=== PATIENT | female | born 1970 | race Caucasian/White ===

== ENCOUNTER 2023-01-27 15:39 | Inpatient (IN) ==
--- NOTE | 2023-01-27 16:24 | XRay Report ---
XR chest 1V portable HISTORY: 52 years-old Female SOB acute shortness of breath COMPARISON: 02/17/2015 TECHNIQUE: AP view of the chest FINDINGS: Cardiac silhouette is enlarged. Mild interstitial coarsening with subtle bibasilar densities. No pneu mothorax or pleural effusion. Degenerative changes of the shoulders and spine. IMPRESSION: 1. Cardiomegaly with pulmonary vascular congestion. 2. Ill-defined mild bibasilar opacities which may be secondary to summation density versus airspace d isease. Findings could be correlated with PA and lateral views of the chest. ACT 112: Negative or not required by law. The above report was generated using voice recognition software. It may contain grammatical, syntax o r spelling errors. Electronically signed by: Jose J Lemos M.D. 01/27/2023 4:23 PM
[2023-01-27 16:39] LABS: Base Excess VBG 3.3 mEq/L; HCO3 VBG 29 mmol/L; Oxygen Saturation VBG 66.6 %; PCO2 VBG 48 mmHg (38-50); PO2 VBG 39 mmHg; pH VBG 7.39 (7.36-7.41)
[2023-01-27 16:49] LABS: Basophils # (auto) 0.02 K/uL (0-0.2); Basophils % (auto) 0.3 %; Eosinophils # (auto) 0.02 K/uL (0-0.50); Eosinophils % (auto) 0.3 %; Hematocrit (blood only) 37.6 % (37.0-47.0); Hemoglobin 12.2 g/dl (12.0-16.0); Immature Granulocytes # (auto) 0.04 K/uL (0.01-0.20); Immature Granulocytes % (auto) 0.5 %; Lymphocytes # (auto) 0.82 K/uL (1.2-3.4); Lymphocytes % (auto) 10.4 %; Mean Corpuscular Hemoglobin 29.2 pg (25.0-34.0); Mean Corpuscular Hgb Conc 32.4 g/dL (32.0-36.0); Mean Platelet Volume 8.9 fL (9.4-12.4); Monocytes # (auto) 0.62 K/uL (0.11-0.59); Monocytes % (auto) 7.9 %; Neutrophils # (auto) 6.33 K/uL (1.40-6.50); Neutrophils % (auto) 80.6 %; Platelet Count 206 K/uL (130-400); RDW Coefficient of Variation 14.5 % (11.5-14.5); RDW Standard Deviation 47.5 fL (36.4-46.3); Red Blood Count 4.18 M/uL (4.20-5.40); White Blood Count 7.85 K/ul (4.8-10.8)
[2023-01-27 17:00] LABS: Adenovirus PCR Not Detected (NotDetected); Bordetella parapertussis PCR Not Detected (NotDetected); Bordetella pertussis PCR Not Detected (NotDetected); Chlamydia pneumoniae PCR Not Detected (NotDetected); Coronavirus 229E PCR Not Detected (NotDetected); Coronavirus CoV-2 (COVID19)PCR Not Detected (NotDetected); Coronavirus HKU1 PCR Not Detected (NotDetected); Coronavirus NL63 PCR Not Detected (NotDetected); Coronavirus OC43PCR Not Detected (NotDetected); Human Metapneumovirus PCR Not Detected (NotDetected); Influenza A PCR Not Detected (NotDetected); Influenza B PCR Not Detected (NotDetected); Mycoplasma pneumoniae PCR Not Detected (NotDetected); Parainfluenza Virus 1 PCR Not Detected (NotDetected); Parainfluenza Virus 2 PCR Not Detected (NotDetected); Parainfluenza Virus 3 PCR Not Detected (NotDetected); Parainfluenza Virus 4 PCR Not Detected (NotDetected); Respiratory Syncytial VirusPCR Not Detected (NotDetected); Rhinovirus/Enterovirus PCR Not Detected (NotDetected)
[2023-01-27 17:01] LABS: Calcium 8.7 mg/dl (8.6-10.3); Creatinine Clr Calc Pharmacy 91.9 ml/min; Est GFR (African American) 85.2 ml/min; Est GFR (Non-African American) 73.5 ml/min; Potassium 3.9 mmol/L (3.5-5.1)
[2023-01-27 17:07] LABS: Troponin I High Sensitivity 12.9 pg/ml (0-14)
[2023-01-27 17:21] LABS: D Dimer 450 ug/L FEU (0-500); Partial Thromboplastin Time 27.1 Seconds (21.0-31.0); Prothrombin Time 10.8 Seconds (9.0-12.0)
[2023-01-27] MEDS ORDERED: FUROSEMIDE 40 MG/4 ML VIAL IV ONE (17:28)
--- NOTE | 2023-01-27 17:43 | History & Physical Report ---
Date of Service January 27, 2023 Assessment & Plan (1) Acute respiratory failure with hypoxia: Plan: Acute hypoxic respiratory failure suspect 2/2 community-acquired pneumonia, no baseline oxygen requirement At increased risk due to immunosuppression from RA treatments 2 weeks of fever, chills, minimally productive cough Viral panel negative CXR with bibasilar infiltrates and pulmonary vascular congestion. Patient has no history of heart failure and no pitting edema. High-sensitivity troponin is normal, BMP is normal. CTchest ordered to further characterize, empiric treatment for CAP on admission with Rocephin/vancomycin, MRSA nares pending if negative discontinue vancomycin Blood cultures pending Sputum culture pending Patient is hemodynamically stable and does not show evidence of sepsis at time of admission Procalcitonin ordered at time of admission - echo pending (2) CAP (community acquired pneumonia): Plan: As noted (3) Rheumatoid arthritis: Plan: Plaquenil and methotrexate held in the setting of suspected infection (4) Diabetes: Plan: Hold home antiglycemic's Patient does not know home A1c A1c pending Weight-based basal bolus SSI, CF 35, ratio 15, basal 11 twice daily Goal BSG [id number] (5) Hyperlipidemia: Plan: Continue statin (6) Chest pain: Plan: Single episode of chest heaviness while walking and very short of breath Patient denies past history of cardiac disease, no GA, no heart failure Initial troponin is negative, EKG without acute ischemic change Repeat troponin x1 pending We will follow on medical telemetry, downgrade 01/28 if doing well and remains chest pain-free If chest pain develops repeat EKG, obtain echo, add sublingual nitro, and continue to follow troponin (7) Hypothyroid: Plan: - continue synthroid Plan DVT prophylaxis: Lovenox Disposition: Medical telemetry for chest pain eval, downgrade if doing well CODE STATUS: DNR/DNI, discussed with patient at bedside with her must not present who is in agreement. Patient does not want any limitation of treatment while alive and would consider a breathing tube for support for declining respiratory status, but if she were to become so ill that her heart/breathing were to stop entirely she would not want resuscitative efforts including CPR/intubation taken at that time Diet: Heart healthy, type II DM History of Present Illness Primary Care Provider: Aquilino Hearn is a 52-year-old female the past medical history of rheumatoid arthritis on methotrexate on Sundays 20 mg, Plaquenil, hypothyroidism, hyperlipidemia, depression, type II DM, hypertension who presents with 2 weeks of weakness, fever, night sweats, minimally productive cough which is not improving. She has no history of heart failure, had 1 episode of some slight chest heaviness while walking with her shortness of breath otherwise denies angina/chest pain saw her PCP who recommended she be seen in ER lightheaded, cough, fever, and some night sweats x2 weeks staying about the same over the last week +shortness of breath. No chest pain/pressure at bedside, reports did have some chest discomfort whiel walking and short of breath earlier in the week. +cough, dry, nonproductive +nausea and decreased appetite, no vomiting. 2-3x loose BMs daily, no black/bloody BM Denies leg swelling currently, sometimes some swelling when on feet during the day NO hx of heart failure No hx of lung disease No hx of kidney disease Hx DM on glipizide Hx pna in 2014, none since. MedHx: RA on methotrexate every monday, plaquinil daily DId not take medications daily Medical History: Reviewed Medications: Reviewed Surgical History: Reviewed Family history: Reviewed Allergies: Reviewed. NKDA. Social History: No tobacco or etoh use. Code Status: DNR/DNi Allergies Allergy/AdvReac Type Severity Reaction Status Date / Time mushroom Allergy Unknown NASAL Verified 02/17/15 11:42 CONGESTION,DIARRHEA No Known Drug Allergies Allergy Unknown NONE Verified 02/17/15 11:42 onion Allergy Unknown NASAL Verified 02/17/15 11:42 CONGESTION,DIARRHEA broccoli AdvReac Unknown DIARRHEA Verified 02/17/15 11:42 Home Medications Medication Instructions Recorded Confirmed Type ALBUTEROL SULFATE (PROAIR HFA) 1 - 2 puff inhalation Q4 #1 inhaler 02/17/15 Rx ALLERGY SHOTS Q2WK ##0 02/17/15 History BIMATOPROST (LUMIGAN) 1 drp OPB HS ##0 02/17/15 History BUPROPION HCL (WELLBUTRIN SR) 150 mg PO BID #0 tabs 02/17/15 History CLOTRIMAZOLE W/ BETAMETHASONE 1 applic topical PRN SKIN 02/17/15 History (CLOTRIMAZOLE/BETAMETHASON) IMPAIRMENT ##0 Cyclosporine (Restasis Eye Drops) 1 drp ophthalmic (eye) BID #0 BTLS 02/17/15 History DIPHENHYDRAMINE HCL (SLEEP) 50 mg PO PRN Itching ##0 02/17/15 History (DIPHENHYDRAMINE HCL) Esomeprazole Magnesium (Nexium) 40 mg PO DAILY #0 caps 02/17/15 History FLUTICASONE PROPIONATE (NASAL) 1 spray RONNIE DAILY ##0 02/17/15 History (FLONASE) IBUPROFEN (ISRAEL IBUPROFEN) 8 tbsp PO QID PRN Pain ##0 02/17/15 History KETOCONAZOLE (TOPICAL) (NIZORAL) 1 applic topical PRN SKIN 02/17/15 History IMPAIRMENT ##0 LEVOTHYROXINE SODIUM (SYNTHROID) 100 mcg PO DAILY #0 tabs 02/17/15 History LUBIPROSTONE (AMITIZA) 24 mcg PO BID #0 caps 02/17/15 History MUPIROCIN 2% (Bactroban 2%) 1 applic EXT UD PRN UNK #0 tubes 02/17/15 History PAROXETINE HCL (PAXIL) 20 mg PO HS #0 tabs 02/17/15 History PAROXETINE HCL (PAXIL) 40 mg PO QAM #0 tabs 02/17/15 History SIMVASTATIN (ZOCOR) 20 mg PO DAILY #0 tabs 02/17/15 History Past Med/Surg History Medical History (Updated 01/27/23 @ 18:14 by Gian Ortega MD) Depression Diabetes Hyperlipidemia Rheumatoid arthritis Social History (Updated 01/27/23 @ 17:59 by Gian Ortega MD) Smoking Status: Never smoker Hx Alcohol Use: No Hx Substance Use: No Preferred Language: Telugu Feels Safe at Home: Yes Review of Systems Review of Systems: All systems reviewed & are unremarkable except as noted in HPI & below Physical Exam Physical Exam: General: A&Ox3. NAD. Cooperative. HEENT: Atraumatic, normocephalic. Vision/hearing grossly intact Pulm: Bibasilar crackles. No wheezes. Symmetrical chest rise. No increased work of breathing. No respiratory distress. On 4 L nasal cannula Cardiac: RRR, -mrg. Radial pulses intact and symmetrical. Abdominal: Obese, nontender, nondistended, soft. BS present. Extremities: Moves all extremities equally. Mixing House Operator strength and ankle dorsiflexion/plantarflexion 5/5 bilaterally. Sensation to soft touch intact in hands and feet without asymmetry or deficit. No pitting edema of the lower extremities Results & Data Results & Data Vital Signs (Past 12 Hours) Vital Signs Temp Pulse Pulse Resp BP BP Pulse Ox 01/27/23 16:52 92 01/27/23 16:01 95 H 22 135/92 90 01/27/23 16:01 01/27/23 16:00 01/27/23 15:56 105 H 01/27/23 15:45 89 L 01/27/23 15:40 36.6 C 109 H 20 123/75 89 L O2 Del Method O2 Flow Rate 01/27/23 16:52 Nasal Cannula 4 01/27/23 16:01 Nasal Cannula 4 01/27/23 16:01 Nasal Cannula 4 01/27/23 16:00 Nasal Cannula 4 01/27/23 15:56 01/27/23 15:45 Room Air 01/27/23 15:40 Room Air PG Care Time/CCT Total # of Minutes Spent Total Time Spent with Patient: Total time spent is greater than 50% in coordination of care (as documented) at patient's floor/unit and/or counseling patient: Coding Level of Care Code 43594 INT INP/OBS CARE 3/75MIN Diagnoses Acute respiratory failure with hypoxia J96.01 CAP (community acquired pneumonia) J18.9 Rheumatoid arthritis M06.9 Diabetes E11.9 Hyperlipidemia E78.5 Chest pain R07.9 Hypothyroid E03.9
[2023-01-27] MEDS ORDERED: GLUCOSE 10 TAB/TUBE PO PRN (18:10)
[2023-01-27] MEDS ORDERED: DEXTROSE 50% 50 ML SYRINGE IV PRN (18:10)
[2023-01-27] MEDS ORDERED: CARBOHYDRATES FOR HYPOGLYCEMIA PO PRN (18:10)
[2023-01-27] MEDS ORDERED: GLUCAGON FOR INJ 1 MG VIAL SQ PRN (18:10)
[2023-01-27] MEDS ORDERED: GLUCOSE 40% GEL 15 GM TUBE PO PRN (18:10)
[2023-01-27] MEDS ORDERED: VANCOMYCIN CONSULT ACTIVE PRN (18:10)
--- NOTE | 2023-01-27 18:30 | CT Scan Report ---
CT chest diagnostic wo con CT DOSE: 871.06 mGy.cm HISTORY: Shortness of breath. Dry cough. TECHNIQUE: Multiaxial CT images of the chest were performed without contrast. A dose lowering techni que was utilized adhering to the principles of ALARA. COMPARISON: Chest CTA 02/17/2015. FINDINGS: No pneumothorax. The central airways are patent. No pleural effusions. There are scattered patchy bilateral groundglass and irregular densities with areas of interstitial thickening most prono unced within the upper to mid lung zones. No acute fractures identified. Normal thyroid gland. Limite d views of the upper abdomen demonstrate hepatic steatosis and a normal spleen. The adrenal glands un remarkable. Prior cholecystectomy and postoperative changes within the stomach. No mediastinal or hil ar lymphadenopathy. The heart is normal in size. No pericardial effusion. Normal esophagus. Normal ca liber thoracic aorta. IMPRESSION: There are multifocal patchy groundglass and irregular densities seen within the upper to mid lung zon es with associated interstitial thickening. This could be due to an atypical/viral pneumonitis, hyper sensitivity pneumonitis, or less likely sarcoidosis. [address] follow-up recommended to ensure resolution. ACT 112: Negative or not required by law. Electronically signed by: Cayetano De La Garza M.D. 01/27/2023 6:28 PM
[2023-01-27] MEDS: cefTRIAXone SODIUM 2,000 MG in DEXTROSE 5% 50 ML IV SCH (18:48)
[2023-01-27] MEDS ORDERED: VANCOMYCIN HCL 2,500 MG in SODIUM CHLORIDE 0.9% 500 ML IV ONE (19:00)
[2023-01-27] MEDS ORDERED: NITROGLYCERIN SL 0.4 MG/TAB TAB SL PRN (20:16)
--- NOTE | 2023-01-27 20:50 | Pharmacy Report ---
Pharmacy PK ABX Note - Date of Service January 27, 2023 - Assessment and Plan Assessment 52 year old F receiving VANCOMYCIN/CEFTRIAXONE for treatment of acute hypoxic respiratory failure 2/2 community acquired pneumonia. Risk factors include treatment with methotrexate form RA. Pertinent microbiologic data includes: blood cultures pending. Day # 1/? of antimicrobial therapy. Plan Vancomycin * Loading dose: 2500 mg IV x 1 * Maintenance dose: 1000 mg IV every 12 hours * Regimen is predicted to achieve target AUC/ROXANNA of 400-600 mg/L.hr * Random level ordered for 01/29 with AM labs Pharmacy will continue to follow and will adjust dose/frequency as necessary. Thank you. Pharmacy has transitioned to AUC monitoring for vancomycin. AUC/ROXANNA is the preferred PK/PD target and is associated with decreased risk of nephrotoxicity compared to traditional trough targets.
[2023-01-27] MEDS: ENOXAPARIN INJ 40 MG/0.4 ML SYR SQ SCH (21:02)
[2023-01-27] MEDS: INSULIN ASPART PER UNIT CHARGE SC SCH (21:03)
[2023-01-27] MEDS: LANTUS PER UNIT CHARGE SQ SCH (21:03)
[2023-01-27] MEDS: buPROPion SR 150 MG TABCR PO SCH (21:03)
[2023-01-27] MEDS: PARoxetine HCL 20 MG TAB PO SCH (21:03)
[2023-01-27] MEDS ORDERED: MENTHOL-ZINC OXIDE 360 APPLN/120 GM TUBE EXT SCH (21:15)
[2023-01-27] MEDS ORDERED: CLOTRIMAZOLE 1% CR 15 GM TUBE EXT PRN (22:04)
--- NOTE | 2023-01-27 23:26 | Emergency Department Note ---
History of Present Illness General Chief Complaint: Shortness of Breath/Dyspnea Stated Complaint: SOB, LIGHTHEADED, REF BY DOC Time Seen by Provider: 01/27/23 16:03 History of Present Illness Provider Complaint: shortness of breath and cough Onset (ago): week(s) (2) Severity: moderate Consistency/Duration: + progressively worsening Maximum Pain Intensity: 5 Relieved By: + rest Exacerbated By: + exertion and + coughing Associated symptoms: + fever, + cough and + nausea/vomiting; no chest pain, no pain with inspiration, no wheezing, no sputum production or no abdominal pain Home Medications Medication Instructions Recorded Confirmed Type bimatoprost 0.01 % eye drops 1 drp OPB HS 01/27/23 01/27/23 History (Lumigan) bupropion HCl 150 mg tablet,12 hr 150 mg PO BID 01/27/23 01/27/23 History sustained-release clonazepam 0.5 mg tablet 0.5 mg PO BID PRN Anxiety 01/27/23 01/27/23 History clotrimazole 1 % topical cream 1 applic topical DIRECTED PRN 01/27/23 01/27/23 History breakouts cyclosporine 0.05 % eye drops in a 1 drp OPB [facility] 01/27/23 01/27/23 History dropperette (Restasis) diphenhydramine HCl 50 mg capsule 50 mg PO TID PRN .. 01/27/23 01/27/23 History (Banophen) fexofenadine 180 mg tablet 180 mg PO DAILY 01/27/23 01/27/23 History folic acid 1 mg tablet 1 mg PO TID 01/27/23 01/27/23 History gabapentin 300 mg capsule 300 mg PO TID 01/27/23 01/27/23 History glipizide 10 mg tablet, extended 10 mg PO QAM 01/27/23 01/27/23 History release 24 hr hydroxychloroquine 200 mg tablet 200 mg PO BID 01/27/23 01/27/23 History ketoconazole 2 % shampoo 1 applic topical DIRECTED PRN 01/27/23 01/27/23 History .itchy head leucovorin calcium 5 mg tablet 5 mg PO WE 01/27/23 01/27/23 History levothyroxine 100 mcg tablet 100 mcg PO QAM 01/27/23 01/27/23 History lisinopril 5 mg tablet 5 mg PO DAILY 01/27/23 01/27/23 History methotrexate sodium 2.5 mg tablet 20 mg PO WE 01/27/23 01/27/23 History mupirocin 2 % topical ointment 1 applic topical BID PRN .. 01/27/23 01/27/23 History pantoprazole 40 mg tablet,delayed 40 mg PO DAILY 01/27/23 01/27/23 History release paroxetine HCl 20 mg tablet 20 mg PO QPM 01/27/23 01/27/23 History paroxetine HCl 40 mg tablet 40 mg PO QAM 01/27/23 01/27/23 History simvastatin 20 mg tablet 20 mg PO DAILY 01/27/23 01/27/23 History Allergies Allergy/AdvReac Type Severity Reaction Status Date / Time mushroom Allergy Unknown NASAL Verified 01/27/23 18:58 CONGESTION,DIARRHEA No Known Drug Allergies Allergy Unknown NONE Verified 01/27/23 18:58 onion Allergy Unknown NASAL Verified 01/27/23 18:58 CONGESTION,DIARRHEA broccoli AdvReac Unknown DIARRHEA Verified 01/27/23 18:58 Past Med/Surg History Medical History Depression Diabetes Hyperlipidemia Rheumatoid arthritis Social History Smoking Status: Never smoker Second Hand Exposure: No; Hx Alcohol Use: No Hx Substance Use: No Preferred Language: Danish Varnish Melter Helper Required: No Beliefs That Will Affect Care: None Current Living Situation: Alone Other Information That Helps Us Care for You: No Feels Safe at Home: Yes Safety Concerns: Feels Safe At This Time Assistive Devices: Lift Chair Physical Exam Vital Signs: Vital Signs - 24 hr 01/27/23 15:40 01/27/23 15:45 01/27/23 15:56 Temperature 36.6 C Temperature Source Temporal Artery Sc an Pulse Rate 109 H 105 H Pulse Rate [Apical ] Respiratory Rate 20 Respiratory Effort / Characteristics Non-Labored Sponta neous Respiratory Depth Normal Respiratory Patter n Regular Blood Pressure 123/75 Blood Pressure [Le ft Arm] Blood Pressure Nohemi n 91 Blood Pressure Nohemi n [Left Arm] Blood Pressure Pos ition Sitting Pulse Oximetry 89 L 89 L Oxygen Delivery Me thod Room Air Room Air Oxygen Flow Rate Sepsis Recent Feve r Within 48 Hours No Sepsis New/Unexpla ined Change in Men carmine Status N/A Sepsis Action Take n by Nursing No Action Required Oxygen Flow Rate - Titration 2 Pulse Oximetry Pos t Tiitration 93 01/27/23 16:00 01/27/23 16:01 01/27/23 16:01 Temperature Temperature Source Pulse Rate Pulse Rate [Apical ] 95 H Respiratory Rate 22 Respiratory Effort / Characteristics Short of Breath Respiratory Depth Deep Respiratory Patter n Blood Pressure Blood Pressure [Le ft Arm] 135/92 Blood Pressure Nohemi n Blood Pressure Nohemi n [Left Arm] 106 Blood Pressure Pos ition Pulse Oximetry 90 Oxygen Delivery Me thod Nasal Cannula Nasal Cannula Nasal Cannula Oxygen Flow Rate 4 4 4 Sepsis Recent Feve r Within 48 Hours Sepsis New/Unexpla ined Change in Men carmine Status Sepsis Action Take n by Nursing Oxygen Flow Rate - Titration Pulse Oximetry Pos t Tiitration 01/27/23 16:52 Temperature Temperature Source Pulse Rate Pulse Rate [Apical ] Respiratory Rate Respiratory Effort / Characteristics Respiratory Depth Respiratory Patter n Blood Pressure Blood Pressure [Le ft Arm] Blood Pressure Nohemi n Blood Pressure Nohemi n [Left Arm] Blood Pressure Pos ition Pulse Oximetry 92 Oxygen Delivery Me thod Nasal Cannula Oxygen Flow Rate 4 Sepsis Recent Feve r Within 48 Hours Sepsis New/Unexpla ined Change in Men carmine Status Sepsis Action Take n by Nursing Oxygen Flow Rate - Titration Pulse Oximetry Pos t Tiitration Physical Exam: Physical Exam GENERAL: She is oriented to person, place, and time. She appears well-developed and well-nourished. She does not appear distressed. HENT: Exam performed. -Head: Normocephalic and atraumatic. -Right Ear: External ear normal. No mastoid erythema -Left Ear: External ear normal. No mastoid erythema -Mouth/Throat: The oropharynx is clear and moist. No trismus in the jaw. No dental abscesses or uvula swelling. No oropharyngeal exudate or tonsillar abscesses. EYES: Conjunctivae and EOM are normal. Right eye exhibits no discharge. Left eye exhibits no discharge. No scleral icterus. NECK: Normal range of motion. Neck supple. No JVD present. No spinous process tenderness present. No tracheal deviation and normal range of motion present. CV: Normal rate, regular rhythm, normal heart sounds and intact distal pulses. There is no peripheral edema. Palpable radial pulses bue. PULM/CHEST: Effort normal and breath sounds normal. No respiratory distress. No stridor. She has no wheezes. She has no rales. -Chest Wall: She exhibits no tenderness. ABD: The abdomen is soft. There is no tenderness. There is no rebound, no guarding. MUSC/SKEL: Normal range of motion. There is no peripheral edema, tenderness or deformity. LYMPH: No cervical adenopathy. NEURO: Motor and sensation grossly intact. SKIN: Skin is warm and dry. She is not diaphoretic. PSYCH: She has a normal mood and affect. Behavior is normal. Judgment and thought content normal. Course Course 1603: The patient was evaluated in room C10. A complete history and physical exam was performed Cardiac monitoring: An order was placed for continuous cardiac monitoring. The monitor shows a rate of 90 with sinus rhythm interpreted by me Patient was found to be hypoxic on room air supplemental oxygen was applied which improved the patient's oxygen saturation. 1740: Vital signs stable on supplemental oxygen via nasal cannula. Labs within normal limits including negative D-dimer negative VBG negative troponin. COVID swab negative. Chest x-ray shows cardiomegaly with pulmonary vascular congestio n. Patient will be given Lasix and admitted to the [facility]ist team Dr. Reid notified. Administered Medications Bupropion HCl (Bupropion Sr 150 Mg Tabcr) 150 mg PO BID [facility] Stop: 02/26/23 20:59 Last Admin: 01/27/23 21:03 Dose: 150 mg Documented By: MIGUELINA Enoxaparin Sodium (Enoxaparin Inj 40 Mg/0.4 Ml Syr) 40 mg SQ Q12 [facility] Stop: 02/26/23 18:14 Last Admin: 01/27/23 21:02 Dose: 40 mg Documented By: MIGUELINA Ceftriaxone Sodium 2,000 mg/ (Dextrose) 70 mls @ 100 mls/hr IV Q24H AMANDA; Pro tocol Stop: 02/03/23 18:59 Last Infusion: 01/27/23 19:39 Dose: 0 mls/hr Documented By: Admin: 01/27/23 18:48 Dose: 100 mls/hr Documented By: Insulin Aspart (Insulin Aspart Per Unit Charge) 0 units SC ACHS [facility] Stop: 02/26/23 20:59 Last Admin: 01/27/23 21:03 Dose: Not Given Documented By: LL Co-signed By: BOBBY Insulin Glargine (Lantus Per Unit Charge) 11 units SQ BID AMANDA Stop: 02/26/23 20:59 Last Admin: 01/27/23 21:03 Dose: 11 units Documented By: MIGUELINA Co-signed By: BOBBY Paroxetine HCl (Paroxetine Hcl 20 Mg Tab) 20 mg PO HS AMANDA Stop: 02/26/23 20:59 Last Admin: 01/27/23 21:03 Dose: 20 mg Documented By: MIGUELINA Discontinued Medications Furosemide (Furosemide 40 Mg/4 Ml Vial) 40 mg IV ONE ONE Stop: 01/27/23 17:29 Last Admin: 01/27/23 18:26 Dose: 40 mg Documented By: Vancomycin HCl 2,500 mg/ (Sodium Chloride) 550 mls @ 200 mls/hr IV NOW ONE Stop: 01/27/23 21:44 Last Admin: 01/27/23 19:40 Dose: 200 mls/hr Documented By: Medical Decision Making Laboratory Data Attestation: I reviewed the patient's lab results. 01/27/23 16:25 01/27/23 16:25 Lab Results 01/27/23 01/27/23 01/27/23 Range/Units 15:58 16:25 16:25 WBC 7.85 (4.8-10.8) K/ul RBC 4.18 L (4.20-5.40) M/uL Hgb 12.2 (12.0-16.0) g/dl Hct 37.6 (37.0-47.0) % MCV 90.0 (80.0-100.0) fL MCH 29.2 (25.0-34.0) pg MCHC 32.4 (32.0-36.0) g/dL RDW Std Deviation 47.5 H (36.4-46.3) fL RDW Coeff of Arsen 14.5 (11.5-14.5) % Plt Count 206 (130-400) K/uL MPV 8.9 L (9.4-12.4) fL Immature Gran % (Auto) 0.5 % Neut % (Auto) 80.6 % Lymph % (Auto) 10.4 % Sumter % (Auto) 7.9 % Eos % (Auto) 0.3 % Baso % (Auto) 0.3 % Neut # (Auto) 6.33 (1.40-6.50) K/uL Lymph # (Auto) 0.82 L (1.2-3.4) K/uL Sumter # (Auto) 0.62 H (0.11-0.59) K/uL Eos # (Auto) 0.02 (0-0.50) K/uL Baso # (Auto) 0.02 (0-0.2) K/uL Immature Gran # (Auto) 0.04 (0.01-0.20) K/uL PT (9.0-12.0) Seconds INR (0.9-1.1) APTT (21.0-31.0) Seconds PTT Ratio D-Dimer (0-500) ug/L FEU VBG pH (7.36-7.41) VBG pCO2 (38-50) mmHg VBG pO2 mmHg VBG HCO3 mmol/L VBG O2 Saturation % VBG Base Excess mEq/L Sodium (136-145) mmol/L Potassium (3.5-5.1) mmol/L Chloride (98-107) mmol/L Carbon Dioxide (21-32) mmol/L Anion Gap (3-11) BUN (6-23) mg/dl Creatinine (0.6-1.2) mg/dl Est Cr Clr Drug Dosing ml/min Est GFR ( Amer) ml/min Est GFR (Non-Af Amer) ml/min BUN/Creatinine Ratio (10-20) Glucose (70-99(Fasting)) mg/dl Calcium (8.6-10.3) mg/dl Magnesium (1.7-2.4) mg/dl Troponin I High Sens (0-14) pg/ml B-Natriuretic Peptide 63 (0-100) pg/ml Procalcitonin (0-0.5) ng/ml Adenovirus (PCR) Not Detected (NotDetected) B. pertussis DNA (PCR) Not Detected (NotDetected) B.parapertussis DNA PCR Not Detected (NotDetected) C. pneumoniae DNA (PCR) Not Detected (NotDetected) Coronavirus OC43 (PCR) Not Detected (NotDetected) Coronavirus HKU1 (PCR) Not Detected (NotDetected) Coronavirus 229E (PCR) Not Detected (NotDetected) SARS-CoV-2 (PCR) Not Detected (NotDetected) Coronavirus NL63 (PCR) Not Detected (NotDetected) Human Metapneumovir PCR Not Detected (NotDetected) Influenza Type A (PCR) Not Detected (NotDetected) Influenza Type B (PCR) Not Detected (NotDetected) M. pneumoniae (PCR) Not Detected (NotDetected) Parainfluenza 1 (PCR) Not Detected (NotDetected) Parainfluenza 2 (PCR) Not Detected (NotDetected) Parainfluenza 3 (PCR) Not Detected (NotDetected) Parainfluenza 4 (PCR) Not Detected (NotDetected) RSV (PCR) Not Detected (NotDetected) Entero/Rhino (PCR) Not Detected (NotDetected) 01/27/23 01/27/23 01/27/23 Range/Units 16:25 16:25 16:25 WBC (4.8-10.8) K/ul RBC (4.20-5.40) M/uL Hgb (12.0-16.0) g/dl Hct (37.0-47.0) % MCV (80.0-100.0) fL MCH (25.0-34.0) pg MCHC (32.0-36.0) g/dL RDW Std Deviation (36.4-46.3) fL RDW Coeff of Arsen (11.5-14.5) % Plt Count (130-400) K/uL MPV (9.4-12.4) fL Immature Gran % (Auto) % Neut % (Auto) % Lymph % (Auto) % Sumter % (Auto) % Eos % (Auto) % Baso % (Auto) % Neut # (Auto) (1.40-6.50) K/uL Lymph # (Auto) (1.2-3.4) K/uL Sumter # (Auto) (0.11-0.59) K/uL Eos # (Auto) (0-0.50) K/uL Baso # (Auto) (0-0.2) K/uL Immature Gran # (Auto) (0.01-0.20) K/uL PT 10.8 (9.0-12.0) Seconds INR 1.0 (0.9-1.1) APTT 27.1 (21.0-31.0) Seconds PTT Ratio 1.0 D-Dimer 450 (0-500) ug/L FEU VBG pH 7.39 (7.36-7.41) VBG pCO2 48 (38-50) mmHg VBG pO2 39 mmHg VBG HCO3 29 mmol/L VBG O2 Saturation 66.6 % VBG Base Excess 3.3 mEq/L Sodium 140 (136-145) mmol/L Potassium 3.9 (3.5-5.1) mmol/L Chloride 104 (98-107) mmol/L Carbon Dioxide 26 (21-32) mmol/L Anion Gap 10 (3-11) BUN 16 (6-23) mg/dl Creatinine 0.89 (0.6-1.2) mg/dl Est Cr Clr Drug Dosing 91.9 ml/min Est GFR ( Amer) 85.2 ml/min Est GFR (Non-Af Amer) 73.5 ml/min BUN/Creatinine Ratio 18.0 (10-20) Glucose 101 H (70-99(Fasting)) mg/dl Calcium 8.7 (8.6-10.3) mg/dl Magnesium 2.0 (1.7-2.4) mg/dl Troponin I High Sens 12.9 (0-14) pg/ml B-Natriuretic Peptide (0-100) pg/ml Procalcitonin (0-0.5) ng/ml Adenovirus (PCR) (NotDetected) B. pertussis DNA (PCR) (NotDetected) B.parapertussis DNA PCR (NotDetected) C. pneumoniae DNA (PCR) (NotDetected) Coronavirus OC43 (PCR) (NotDetected) Coronavirus HKU1 (PCR) (NotDetected) Coronavirus 229E (PCR) (NotDetected) SARS-CoV-2 (PCR) (NotDetected) Coronavirus NL63 (PCR) (NotDetected) Human Metapneumovir PCR (NotDetected) Influenza Type A (PCR) (NotDetected) Influenza Type B (PCR) (NotDetected) M. pneumoniae (PCR) (NotDetected) Parainfluenza 1 (PCR) (NotDetected) Parainfluenza 2 (PCR) (NotDetected) Parainfluenza 3 (PCR) (NotDetected) Parainfluenza 4 (PCR) (NotDetected) RSV (PCR) (NotDetected) Entero/Rhino (PCR) (NotDetected) 01/27/23 Range/Units 16:26 WBC (4.8-10.8) K/ul RBC (4.20-5.40) M/uL Hgb (12.0-16.0) g/dl Hct (37.0-47.0) % MCV (80.0-100.0) fL MCH (25.0-34.0) pg MCHC (32.0-36.0) g/dL RDW Std Deviation (36.4-46.3) fL RDW Coeff of Arsen (11.5-14.5) % Plt Count (130-400) K/uL MPV (9.4-12.4) fL Immature Gran % (Auto) % Neut % (Auto) % Lymph % (Auto) % Sumter % (Auto) % Eos % (Auto) % Baso % (Auto) % Neut # (Auto) (1.40-6.50) K/uL Lymph # (Auto) (1.2-3.4) K/uL Sumter # (Auto) (0.11-0.59) K/uL Eos # (Auto) (0-0.50) K/uL Baso # (Auto) (0-0.2) K/uL Immature Gran # (Auto) (0.01-0.20) K/uL PT (9.0-12.0) Seconds INR (0.9-1.1) APTT (21.0-31.0) Seconds PTT Ratio D-Dimer (0-500) ug/L FEU VBG pH (7.36-7.41) VBG pCO2 (38-50) mmHg VBG pO2 mmHg VBG HCO3 mmol/L VBG O2 Saturation % VBG Base Excess mEq/L Sodium (136-145) mmol/L Potassium (3.5-5.1) mmol/L Chloride (98-107) mmol/L Carbon Dioxide (21-32) mmol/L Anion Gap (3-11) BUN (6-23) mg/dl Creatinine (0.6-1.2) mg/dl Est Cr Clr Drug Dosing ml/min Est GFR ( Amer) ml/min Est GFR (Non-Af Amer) ml/min BUN/Creatinine Ratio (10-20) Glucose (70-99(Fasting)) mg/dl Calcium (8.6-10.3) mg/dl Magnesium (1.7-2.4) mg/dl Troponin I High Sens (0-14) pg/ml B-Natriuretic Peptide (0-100) pg/ml Procalcitonin 0.07 (0-0.5) ng/ml Adenovirus (PCR) (NotDetected) B. pertussis DNA (PCR) (NotDetected) B.parapertussis DNA PCR (NotDetected) C. pneumoniae DNA (PCR) (NotDetected) Coronavirus OC43 (PCR) (NotDetected) Coronavirus HKU1 (PCR) (NotDetected) Coronavirus 229E (PCR) (NotDetected) SARS-CoV-2 (PCR) (NotDetected) Coronavirus NL63 (PCR) (NotDetected) Human Metapneumovir PCR (NotDetected) Influenza Type A (PCR) (NotDetected) Influenza Type B (PCR) (NotDetected) M. pneumoniae (PCR) (NotDetected) Parainfluenza 1 (PCR) (NotDetected) Parainfluenza 2 (PCR) (NotDetected) Parainfluenza 3 (PCR) (NotDetected) Parainfluenza 4 (PCR) (NotDetected) RSV (PCR) (NotDetected) Entero/Rhino (PCR) (NotDetected) Imaging Data Attestation: I personally reviewed and interpreted this imaging study as follows: My Impression: Chest x-ray: Cardiomegaly with cephalization Radiologist's Impression: XR chest 1V portable HISTORY: 52 years-old Female SOB acute shortness of breath COMPARISON: 02/17/2015 TECHNIQUE: AP view of the chest FINDINGS: Cardiac silhouette is enlarged. Mild interstitial coarsening with subtle bibasilar densities. No pneumothorax or pleural effusion. Degenerative changes of the shoulders and spine. IMPRESSION: 1. Cardiomegaly with pulmonary vascular congestion. 2. Ill-defined mild bibasilar opacities which may be secondary to summation density versus airspace disease. Findings could be correlated with PA and lateral views of the chest. ACT 112: Negative or not required by law. The above report was generated using voice recognition software. It may contain grammatical, syntax or spelling errors. Electronically signed by: Jose J Lemos M.D. 01/27/2023 4:23 PM Dictated:[id number]/27/[id number] Transcribed: 01/27/23 162 ECG Data Attestation: I personally reviewed and interpreted this ECG as follows: Interpretation: Sinus rhythm with a rate of 97. ND QRS and QTc intervals within normal limits. No ST elevation or ST depression. [facility] Narrative 1603: The patient was evaluated in room C10. A complete history and physical exam was performed Cardiac monitoring: An order was placed for continuous cardiac monitoring. The monitor shows a rate of 90 with sinus rhythm interpreted by me Patient was found to be hypoxic on room air supplemental oxygen was applied which improved the patient's oxygen saturation. 1740: Vital signs stable on supplemental oxygen via nasal cannula. Labs within normal limits including negative D-dimer negative VBG negative troponin. COVID swab negative. Chest x-ray shows cardiomegaly with pulmonary vascular congestion. Patient will be given Lasix and admitted to the [facility] Hospitalist team Dr. Reid notified. Impression & Plan Hypoxia, CHF (congestive heart failure) Critical Care Time Critical Care Time: Yes Total Critical Care Time: 52 I have personally spent greater than 52 minutes of critical care time in the direct management of this patient. This includes bedside care, interpretation of diagnostic studies, and testing, discussion with consultants, patient, and family members, and other required patient management activities. This 52 minutes is in excess of all separately billable procedures. Discharge Plan Visit Data Chief Complaint: Shortness of Breath/Dyspnea Stated Complaint: SOB, LIGHTHEADED, REF BY DOC ED Provider: Ivan Nunez Discharge Problem: Hypoxia, CHF (congestive heart failure) Patient Disposition: Admitted As Inpatient Discharge Instructions Interventions: ED Discharge Assessment Last Done: 01/27/23 19:45
[2023-01-27] MEDS ORDERED: diphenhydrAMINE Capsule 25 MG CAP PO ONE (23:43)
[2023-01-28] MEDS: LEVOTHYROXINE SODIUM 100 MCG TABLET PO SCH (05:38)
[2023-01-28 07:49] LABS: Basophils # (auto) 0.02 K/uL (0-0.2); Basophils % (auto) 0.3 %; Eosinophils # (auto) 0.03 K/uL (0-0.50); Eosinophils % (auto) 0.5 %; Hemoglobin 12.5 g/dl (12.0-16.0); Immature Granulocytes # (auto) 0.04 K/uL (0.01-0.20); Immature Granulocytes % (auto) 0.7 %; Lymphocytes # (auto) 1.13 K/uL (1.2-3.4); Lymphocytes % (auto) 19.4 %; Mean Corpuscular Hemoglobin 28.7 pg (25.0-34.0); Mean Corpuscular Hgb Conc 32.1 g/dL (32.0-36.0); Mean Corpuscular Volume 89.4 fL (80.0-100.0); Monocytes # (auto) 0.64 K/uL (0.11-0.59); Neutrophils # (auto) 3.97 K/uL (1.40-6.50); Neutrophils % (auto) 68.1 %; Platelet Count 218 K/uL (130-400); RDW Coefficient of Variation 14.6 % (11.5-14.5); RDW Standard Deviation 47.5 fL (36.4-46.3); Red Blood Count 4.36 M/uL (4.20-5.40); White Blood Count 5.83 K/ul (4.8-10.8)
--- NOTE | 2023-01-28 07:56 | Hospitalist Progress Note ---
Date of Service January 28, 2023 Assessment & Plan (1) Acute respiratory failure with hypoxia: Plan: - Acute hypoxic respiratory failure suspect 2/2 community-acquired pneumonia, no baseline oxygen requirement, improving now on 2LNC, wean as tolerated At increased risk due to immunosuppression from RA treatments 2 weeks of intermittent fever, chills, minimally productive cough Viral panel negative CXR with bibasilar infiltrates and pulmonary vascular congestion. Patient has no history of heart failure and no pitting edema. High-sensitivity troponin is normal, BMP is normal - CT Chest with patchy bilateral opacities in all lobes, no lobar consolidation Blood cultures pending, continue ceftriaxone azithromycin; vanc d/c'ed 2/2 negative MRSA nares - Echo ordered - Pulmonology consulted and appreciate recommendations: suspect atypical pna on underlying ILD, continue Abx x5 days, SHAHBAZ, hypersensitivity pneumonia panel, Sjogren's testing with AM labs tomorrow (2) ILD (interstitial lung disease): Plan: See above Sputum culture, hypersensitivity pneumonia panel, PJP PCR ordered (3) CAP (community acquired pneumonia): Plan: As noted (4) Rheumatoid arthritis: Plan: Plaquenil and methotrexate held in the setting of suspected infection (5) Diabetes: Plan: Holding home antiglycemics in favor of basal/bolus insulin A1c pending (6) Hyperlipidemia: Plan: Continue statin (7) Chest pain: Plan: Single episode of chest heaviness while walking and very short of breath Patient denies past history of cardiac disease, no MD, no heart failure Troponin is negative, EKG without acute ischemic change (8) Hypothyroid: Plan: - Continue Synthroid Plan DVT prophylaxis: Lovenox Disposition: Medical telemetry CODE STATUS: DNR/DNI, discussed with patient at bedside with her must not present who is in agreement. Patient does not want any limitation of treatment while alive and would consider a breathing tube for support for declining respiratory status, but if she were to become so ill that her heart/breathing were to stop entirely she would not want resuscitative efforts including CPR/intubation taken at that time Diet: Heart healthy, type II DM Admission and Anticipated Discharge Date Admission Date: January 27, 2023 Subjective Patient without any acute events overnight. Breathing feels better, and she denies other complaints including chest pain, abdominal pain, nausea, diarrhea. Review of Systems Review of Systems: All systems reviewed & are unremarkable except as noted in Subjective Physical Exam Constitutional: WD/WN, vitals as above Respiratory: normal respiratory effort, lungs clear to auscultation Cardiovascular: RRR, no murmur, no edema Gastrointestinal (Abdomen): normal bowel sounds, soft, nontender, no hepatosplenomegaly Skin: no rashes, warm and dry Psychiatric: A+Ox3, euthymic affect Results & Data Results & Data Vital Signs (Past 12 Hours) Vital Signs Temp Pulse Pulse Resp BP Pulse Ox O2 Del Method 01/28/23 03:59 36.7 C 88 18 105/71 98 Nasal Cannula 01/28/23 00:53 91 H 01/27/23 23:30 36.5 C 89 18 126/82 95 Nasal Cannula 01/27/23 21:00 95 H 01/27/23 20:00 Nasal Cannula 01/27/23 20:00 36.7 C 97 H 18 139/84 94 Room Air O2 Flow Rate 01/28/23 03:59 4 01/28/23 00:53 01/27/23 23:30 4 01/27/23 21:00 01/27/23 20:00 4 01/27/23 20:00 4 PG Care Time/CCT Total # of Minutes Spent Total Time Spent with Patient: Total time spent is greater than 50% in coordination of care (as documented) at patient's floor/unit and/or counseling patient: Coding Level of Care Code 93343 SUB INP/OBS CARE 3/50MIN Diagnoses Acute respiratory failure with hypoxia J96.01 ILD (interstitial lung disease) J84.9 CAP (community acquired pneumonia) J18.9 Rheumatoid arthritis M06.9 Diabetes E11.9 Hyperlipidemia E78.5 Chest pain R07.9 Hypothyroid E03.9
[2023-01-28 08:03] LABS: Albumin Globulin Ratio 1.4 (0.9-2); BUN Creatinine Ratio 17.6 (10-20); Bilirubin,Total 0.4 mg/dl (0.2-1.0); Calcium 9.2 mg/dl (8.6-10.3); Chol HDL Ratio 3.8 (0-5); Creatinine Clr Calc Pharmacy 94.1 ml/min; Est GFR (Non-African American) 77.7 ml/min; Globulin 2.8 gm/dl (2.5-4.0); Potassium 3.6 mmol/L (3.5-5.1); Total Protein 6.8 gm/dl (6.0-8.3)
[2023-01-28 08:10] LABS: Estimated Average Glucose 114 mg/dl; Hemoglobin A1C 5.6 % (4.5-5.6)
[2023-01-28] MEDS: INSULIN ASPART PER UNIT CHARGE SC SCH ×4 (08:17→20:23)
[2023-01-28] MEDS: PARoxetine HCL 20 MG TAB PO SCH ×2 (08:20→21:36)
[2023-01-28] MEDS: ACETAMINOPHEN 325 MG TAB PO PRN (08:20)
[2023-01-28] MEDS: buPROPion SR 150 MG TABCR PO SCH ×2 (08:21→20:22)
[2023-01-28] MEDS: PANTOprazole 40 MG TAB PO SCH (08:24)
[2023-01-28] MEDS: SIMVASTATIN 20 MG TAB PO SCH (08:24)
[2023-01-28] MEDS: ENOXAPARIN INJ 40 MG/0.4 ML SYR SQ SCH ×2 (08:25→20:23)
--- NOTE | 2023-01-28 08:27 | Pulmonary Consultation ---
Date of Consultation January 28, 2023 Assessment & Plan (1) Acute respiratory failure with hypoxia: (2) CAP (community acquired pneumonia): (3) Rheumatoid arthritis: (4) Abnormal chest CT: (5) ILD (interstitial lung disease): Plan CT chest 01/27/2023 personally reviewed: Patchy opacities appreciated bilaterally upper as well as lower lobes Minimal bronchiectasis in the right upper as well as the lingula No significant mediastinal lymphadenopathy The above findings are new compared to CT chest which was done February 2015 --Acute respiratory failure with hypoxia Likely secondary atypical pneumonia on underlying ILD Lymphopenia (likely from MTX) Procalcitonin 0.07, BNP 63 Respiratory bio fire negative for everything including SARS CoV Nasal MRSA negative --ILD Patient seems to have bronchiectasis in bilateral upper lobes She has been on methotrexate as well as has rheumatoid arthritis Rheumatoid arthritis itself can give ILD, throat laxity is also possibility it will be very hard to differentiate between those 2 Patient also has birds at home since last 15 years. Hypersensitive pneumonitis fibrotic is also possibility Sputum culture as well as PJP PCR --Probable JUSTIN Outpatient polysomnography CPAP nightly -- Rheumatoid arthritis On methotrexate and hydroxychloroquine Plan: Continue with antibiotics with atypical coverage for total of [address] chest does not seem to go with PJP. We will hold back on empiric treatment for that. I will order SHAHBAZ with reflex, hypersensitivity pneumonia panel and Sjogren's to be done tomorrow Continue with O2 supplementation to keep oxygen saturation 90-92% Please note the above document was generated using voice recognition software. It may contain grammatical, syntax or spelling errors.Any formal questions or concerns about the content, text or information contained within the body of this dictation should be directly addressed to the provider for clarification. History of Present Illness Attending Physician: Chel Tinsley, DO History of Present Illness 52-year-old female present to the hospital with complaints of shortness of breath and fever Past medical history: Rheumatoid arthritis on methotrexate and hydroxychloroquine, hypertension, hypothyroidism Pulmonary consulted for abnormal chest CT At the time of examination patient was saturating 98% on 4 L nasal cannula. I went down to 2 L. She was not in any acute distress She stated that she has been having issues with coughing and shortness of breath chest pain going on for a while Cough is usually nonproductive Denies any pleuritic chest pain No nausea or vomiting No diarrhea, no dysuria Social history: Lifetime non-smoker Has 1 [employer], 2 parakeets and 1 [employer]ourke since the last 15 years Allergies Allergy/AdvReac Type Severity Reaction Status Date / Time mushroom Allergy Unknown NASAL Verified 01/27/23 18:58 CONGESTION,DIARRHEA No Known Drug Allergies Allergy Unknown NONE Verified 01/27/23 18:58 onion Allergy Unknown NASAL Verified 01/27/23 18:58 CONGESTION,DIARRHEA broccoli AdvReac Unknown DIARRHEA Verified 01/27/23 18:58 Home Medications Medication Instructions Recorded Confirmed Type bimatoprost 0.01 % eye drops 1 drp OPB HS 01/27/23 01/27/23 History (Lumigan) bupropion HCl 150 mg tablet,12 hr 150 mg PO BID 01/27/23 01/27/23 History sustained-release clonazepam 0.5 mg tablet 0.5 mg PO BID PRN Anxiety 01/27/23 01/27/23 History clotrimazole 1 % topical cream 1 applic topical DIRECTED PRN 01/27/23 01/27/23 History breakouts cyclosporine 0.05 % eye drops in a 1 drp OPB AMHS 01/27/23 01/27/23 History dropperette (Restasis) diphenhydramine HCl 50 mg capsule 50 mg PO TID PRN .. 01/27/23 01/27/23 History (Banophen) fexofenadine 180 mg tablet 180 mg PO DAILY 01/27/23 01/27/23 History folic acid 1 mg tablet 1 mg PO TID 01/27/23 01/27/23 History gabapentin 300 mg capsule 300 mg PO TID 01/27/23 01/27/23 History glipizide 10 mg tablet, extended 10 mg PO QAM 01/27/23 01/27/23 History release 24 hr hydroxychloroquine 200 mg tablet 200 mg PO BID 01/27/23 01/27/23 History ketoconazole 2 % shampoo 1 applic topical DIRECTED PRN 01/27/23 01/27/23 History .itchy head leucovorin calcium 5 mg tablet 5 mg PO WE 01/27/23 01/27/23 History levothyroxine 100 mcg tablet 100 mcg PO QAM 01/27/23 01/27/23 History lisinopril 5 mg tablet 5 mg PO DAILY 01/27/23 01/27/23 History methotrexate sodium 2.5 mg tablet 20 mg PO WE 01/27/23 01/27/23 History mupirocin 2 % topical ointment 1 applic topical BID PRN .. 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 Beliefs That Will Affect Care: None Current Living Situation: Alone Other Information That Helps Us Care for You: No Feels Safe at Home: Yes Safety Concerns: Feels Safe At This Time Assistive Devices: Lift Chair Review of Systems Review of Systems: All systems reviewed & are unremarkable except as noted in HPI & below Physical Exam Physical Exam: Constitutional: No acute distress HEENT: EOMI, PERRLA, thick short neck Respiratory system: Good air entry bilaterally, no wheeze, no rhonchi, mild crackles bilaterally CVS: S1-S2 positive, no murmurs or gallops Abdomen: Soft, nontender, nondistended, positive bowel sounds x4, obese Extremities: +2 pulses bilaterally radialis/ dorsalis pedis, no cyanosis, no edema Neuro: Awake alert oriented x3 Psych: Normal mood and affect G/U: No Yancey Skin: no rashes, warm and dry Lymphatic: no cervical or axillary lymphadenopathy Results & Data Results & Data Vital Signs (Past 12 Hours) Vital Signs Temp Pulse Pulse Resp BP Pulse Ox O2 Del Method 01/28/23 08:00 36.8 C 87 20 121/80 98 Nasal Cannula 01/28/23 03:59 36.7 C 88 18 105/71 98 Nasal Cannula 01/28/23 00:53 91 H 05/12/23 23:30 36.5 C 89 18 126/82 95 Nasal Cannula 01/27/23 21:00 95 H O2 Flow Rate 01/28/23 08:00 4 01/28/23 03:59 4 01/28/23 00:53 01/27/23 23:30 4 01/27/23 21:00 Laboratory Results 01/28/23 06:58 01/28/23 06:58 PG Care Time/CCT Total # of Minutes Spent Total Time Spent with Patient: Total time spent is greater than 50% in coordination of care (as documented) at patient's floor/unit and/or counseling patient: Coding Level of Care Code 15713 INT INP/OBS CARE 3/75MIN Diagnoses Acute respiratory failure with hypoxia J96.01 CAP (community acquired pneumonia) J18.9 Rheumatoid arthritis M06.[address] R93.89 ILD (interstitial lung disease) J84.9
[2023-01-28] MEDS: AZITHROMYCIN 500 MG in DEXTROSE 5% 250 ML IV SCH (09:40)
[2023-01-28] MEDS ORDERED: VANCOMYCIN HCL 1,000 MG in SODIUM CHLORIDE 0.9% 250 ML IV SCH (10:00)
[2023-01-28] MEDS: LANTUS PER UNIT CHARGE SQ SCH ×2 (10:10→20:22)
[2023-01-28] MEDS: cefTRIAXone SODIUM 2,000 MG in DEXTROSE 5% 50 ML IV SCH (19:26)
[2023-01-28] MEDS ORDERED: BIMATOPROST 0.01% OP SOLN 2.5 ML BTL OP SCH (21:00)
--- NOTE | 2023-01-28 21:05 | XCELERA ---
[id number]
[2023-01-29] MEDS: LEVOTHYROXINE SODIUM 100 MCG TABLET PO SCH (05:48)
[2023-01-29 06:32] LABS: Basophils # (auto) 0.01 K/uL (0-0.2); Basophils % (auto) 0.2 %; Eosinophils # (auto) 0.01 K/uL (0-0.50); Eosinophils % (auto) 0.2 %; Hemoglobin 12.6 g/dl (12.0-16.0); Immature Granulocytes # (auto) 0.03 K/uL (0.01-0.20); Immature Granulocytes % (auto) 0.5 %; Mean Corpuscular Hemoglobin 28.9 pg (25.0-34.0); Mean Corpuscular Hgb Conc 31.5 g/dL (32.0-36.0); Mean Corpuscular Volume 91.7 fL (80.0-100.0); Monocytes # (auto) 0.56 K/uL (0.11-0.59); Monocytes % (auto) 9.5 %; Neutrophils # (auto) 4.27 K/uL (1.40-6.50); Neutrophils % (auto) 72.6 %; Platelet Count 239 K/uL (130-400); RDW Coefficient of Variation 14.6 % (11.5-14.5); RDW Standard Deviation 49.1 fL (36.4-46.3); Red Blood Count 4.36 M/uL (4.20-5.40); White Blood Count 5.88 K/ul (4.8-10.8)
[2023-01-29 06:51] LABS: BUN Creatinine Ratio 18.9 (10-20); Calcium 9.3 mg/dl (8.6-10.3); Creatinine Clr Calc Pharmacy 84.1 ml/min; Est GFR (African American) 78.7 ml/min; Est GFR (Non-African American) 67.9 ml/min; Potassium 3.9 mmol/L (3.5-5.1)
[2023-01-29] MEDS: ACETAMINOPHEN 325 MG TAB PO PRN (07:41)
[2023-01-29] MEDS: buPROPion SR 150 MG TABCR PO SCH (07:41)
[2023-01-29] MEDS: PANTOprazole 40 MG TAB PO SCH (07:41)
[2023-01-29] MEDS: ENOXAPARIN INJ 40 MG/0.4 ML SYR SQ SCH (07:43)
[2023-01-29] MEDS: SIMVASTATIN 20 MG TAB PO SCH (07:43)
--- NOTE | 2023-01-29 08:50 | Pulmonology Progress Note ---
Date of Service January 29, 2023 Assessment & Plan (1) Acute respiratory failure with hypoxia: (2) CAP (community acquired pneumonia): (3) Rheumatoid arthritis: (4) Abnormal chest CT: (5) ILD (interstitial lung disease): Plan CT chest 01/27/2023 personally reviewed: Patchy opacities appreciated bilaterally upper as well as lower lobes Minimal bronchiectasis in the right upper as well as the lingula No significant mediastinal lymphadenopathy The above findings are new compared to CT chest which was done February 2015 --Acute respiratory failure with hypoxia Likely secondary atypical pneumonia on underlying ILD Lymphopenia (likely from MTX) Procalcitonin 0.07, BNP 63 Respiratory bio fire negative for everything including SARS CoV Nasal MRSA negative --ILD Patient seems to have bronchiectasis in bilateral upper lobes She has been on methotrexate as well as has rheumatoid arthritis Rheumatoid arthritis itself can give ILD, throat laxity is also possibility it will be very hard to differentiate between those 2 Patient also has birds at home since last 15 years. Hypersensitive pneumonitis (fibrotic) is also high possibility Sputum culture as well as PJP PCR Getting rid of the birds was explained to the patient but they are radiated to her and stated that that is not a possibility --Probable JUSTIN Outpatient polysomnography CPAP nightly -- Rheumatoid arthritis On methotrexate and hydroxychloroquine Plan: Patient is back to room air. She did use CPAP overnight and had no difficulties with it. Recommend outpatient polysomnography Recommend to step prior to discharge to see if patient needs oxygen on exertion Continue with antibiotics with atypical coverage for total of 5 days We will recommend high-resolution CAT scan to be done in 6 weeks. If patient still has persistent opacities then bronchoscopy can be thought of following that CT chest does not seem to go with PJP. We will hold back on empiric treatment for that. Follow-up SHAHBAZ with reflex, hypersensitivity pneumonia panel and Sjogren's to be done tomorrow No further recommendation from pulmonary perspective, will sign off Please call directly with any questions Case was discussed with hospitalist Please note the above document was generated using voice recognition software. It may contain grammatical, syntax or spelling errors.Any formal questions or concerns about the content, text or information contained within the body of this dictation should be directly addressed to the provider for clarification. Admission and Anticipated Discharge Date Admission Date: January 27, 2023 Subjective Patient seen and examined at bedside. No acute distress, no dressings overnight She was saturating 93-94% on room air at the time of examination Denies any cough, no chest pain Has been afebrile No headache, no blurry vision Fair appetite Review of Systems Review of Systems: All systems reviewed & are unremarkable except as noted in Subjective Physical Exam Physical Exam: Constitutional: No acute distress HEENT: EOMI, PERRLA, thick short neck Respiratory system: Good air entry bilaterally, no wheeze, no rhonchi, no crackles CVS: S1-S2 positive, no murmurs or gallops Abdomen: Soft, nontender, nondistended, positive bowel sounds x4, obese Extremities: +2 pulses bilaterally radialis/ dorsalis pedis, no cyanosis, no edema Neuro: Awake alert oriented x3 Psych: Normal mood and affect G/U: No Yancey Skin: no rashes, warm and dry Lymphatic: no cervical or axillary lymphadenopathy Results & Data Results & Data Vital Signs (Past 12 Hours) Vital Signs Temp Pulse Pulse Resp BP BP Pulse Ox 01/29/23 07:39 36.5 C 98 H 18 108/74 92 01/29/23 04:00 36.7 C 99 H 18 117/78 93 01/29/23 03:17 17 90 01/28/23 23:20 36.7 C 96 H 18 136/79 92 01/29/23 01:30 101 H 01/29/23 00:22 O2 Del Method FiO2 01/29/23 07:39 Room Air 01/29/23 04:00 CPAP 01/29/23 03:17 21 01/28/23 23:20 Room Air 01/29/23 01:30 01/29/23 00:22 Room Air Laboratory Results 01/29/23 05:28 01/29/23 05:28 PG Care Time/CCT Total # of Minutes Spent Total Time Spent with Patient: Total time spent is greater than 50% in coordination of care (as documented) at patient's floor/unit and/or counseling patient: Coding Level of Care Code 34899 SUB INP/OBS CARE 2/35MIN Diagnoses Acute respiratory failure with hypoxia J96.01 CAP (community acquired pneumonia) J18.9 Rheumatoid arthritis M06.[address] R93.89 ILD (interstitial lung disease) J84.9
[2023-01-29] MEDS: LANTUS PER UNIT CHARGE SQ SCH (09:59)
[2023-01-29] MEDS: INSULIN ASPART PER UNIT CHARGE SC SCH ×2 (10:01→11:41)
[2023-01-29] MEDS: AZITHROMYCIN 500 MG in DEXTROSE 5% 250 ML IV SCH (10:02)
[2023-01-29] MEDS: PARoxetine HCL 20 MG TAB PO SCH (11:20)
--- NOTE | 2023-01-29 13:22 | XRay Report ---
XR chest 1V portable CLINICAL HISTORY: f/u TECHNIQUE: Single frontal radiograph of the chest was obtained. Comparison: Comparison is made to chest radiograph 01/27/2023 FINDINGS: Exam is limited by underpenetration. The cardiomediastinal silhouette is normal. The lungs are clear. No evidence of pleural effusion or pneumothorax. IMPRESSION: No acute chest disease. ACT 112: Negative or not required by law. Electronically signed by: Karthik Campbell M.D. 01/29/2023 1:21 PM
--- NOTE | 2023-01-29 13:25 | Discharge Summary ---
Discharge Summary Date of Service January 29, 2023 Admission HPI Per Admitting Provider Melani is a 52-year-old female the past medical history of rheumatoid arthritis on methotrexate on Sundays 20 mg, Plaquenil, hypothyroidism, hyperlipidemia, depression, type II DM, hypertension who presents with 2 weeks of weakness, fever, night sweats, minimally productive cough which is not improving. She has no history of heart failure, had 1 episode of some slight chest heaviness while walking with her shortness of breath otherwise denies angina/chest pain saw her PCP who recommended she be seen in ER lightheaded, cough, fever, and some night sweats x2 weeks staying about the same over the last week +shortness of breath. No chest pain/pressure at bedside, reports did have some chest discomfort whiel walking and short of breath earlier in the week. +cough, dry, nonproductive +nausea and decreased appetite, no vomiting. 2-3x loose BMs daily, no black/bl oody BM Denies leg swelling currently, sometimes some swelling when on feet during the day NO hx of heart failure No hx of lung disease No hx of kidney disease Hx DM on glipizide Hx pna in 2014, none since. MedHx: RA on methotrexate every monday, plaquinil daily DId not take medications daily Medical History: Reviewed Medications: Reviewed Surgical History: Reviewed Family history: Reviewed Allergies: Reviewed. NKDA. Social History: No tobacco or etoh use. Code Status: DNR/DNi Admission Exam Per Admitting Provider General: A&Ox3. NAD. Cooperative. HEENT: Atraumatic, normocephalic. Vision/hearing grossly intact Pulm: Bibasilar crackles. No wheezes. Symmetrical chest rise. No increased work of breathing. No respiratory distress. On 4 L nasal cannula Cardiac: RRR, -mrg. Radial pulses intact and symmetrical. Abdominal: Obese, nontender, nondistended, soft. BS present. Extremities: Moves all extremities equally. 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 Sensation to soft touch intact in hands and feet without asymmetry or deficit. No pitting edema of the lower extremities Principal Dx & Hospital Course #1 = Principal Diagnosis (1) Acute respiratory failure with hypoxia: Acute hypoxic respiratory failure suspect 2/2 community-acquired pneumonia, no baseline oxygen requirement, on room air at rest 2 weeks of intermittent fever, chills, minimally productive cough Viral panel negative CXR with bibasilar infiltrates and pulmonary vascular congestion. Patient has no history of heart failure and no pitting edema. High-sensitivity troponin is normal, BMP is normal CT Chest with patchy bilateral opacities in all lobes, no lobar consolidation Blood cultures NGTD, continue azithromycin x5 days Two-step performed: Room air at rest with 2 L nasal cannula with ambulation, patient will go home with home on oxygen Pulmonology consulted and appreciate recommendations: suspect atypical pneumonia on underlying ILD, continue azithromycin. Hypersensitivity panel pending. Recommend high-resolution CT chest in 6 weeks and pulmonology follow- up. Also recommend sleep study outpatient. Patient has parents, recommended that she wear a mask with any bird handling (2) ILD (interstitial lung disease): See above Hypersensitivity pneumonia panel, PJP PCR ordered (3) CAP (community acquired pneumonia): As noted (4) Rheumatoid arthritis: Plaquenil and methotrexate held in the setting of suspected infection, can resume (5) Diabetes: Resume home regimen, A1c 5.6% on 01/28/2023 (6) Hyperlipidemia: Continue statin (7) Chest pain: Single episode of chest heaviness while walking and very short of breath Patient denies past history of cardiac disease, no ME, no heart failure Troponin is negative, EKG without acute ischemic change (8) Hypothyroid: Continue Synthroid Plan Disposition: Home with Discharge Exam Constitutional WD/WN, vitals as above Respiratory Breathing comfortably, saturating 95% on room air Psychiatric A+Ox3, euthymic affect Updated Medication List Medication Instructions Recorded Confirmed Type bimatoprost 0.01 % eye drops 1 drp OPB HS 01/27/23 01/27/23 History (Lumigan) bupropion HCl 150 mg tablet,12 hr 150 mg PO BID 01/27/23 01/27/23 History sustained-release clonazepam 0.5 mg tablet 0.5 mg PO BID PRN Anxiety 01/27/23 01/27/23 History clotrimazole 1 % topical cream 1 applic topical DIRECTED PRN 01/27/23 01/27/23 History breakouts cyclosporine 0.05 % eye drops in a 1 drp OPB AMHS 01/27/23 01/27/23 History dropperette (Restasis) diphenhydramine HCl 50 mg capsule 50 mg PO TID PRN .. 01/27/23 01/27/23 History (Banophen) fexofenadine 180 mg tablet 180 mg PO DAILY 01/27/23 01/27/23 History folic acid 1 mg tablet 1 mg PO TID 01/27/23 01/27/23 History gabapentin 300 mg capsule 300 mg PO TID 01/27/23 01/27/23 History glipizide 10 mg tablet, extended 10 mg PO QAM 01/27/23 01/27/23 History release 24 hr hydroxychloroquine 200 mg tablet 200 mg PO BID 01/27/23 01/27/23 History ketoconazole 2 % shampoo 1 applic topical DIRECTED PRN 01/27/23 01/27/23 History .itchy head leucovorin calcium 5 mg tablet 5 mg PO WE 01/27/23 01/27/23 History levothyroxine 100 mcg tablet 100 mcg PO QAM 01/27/23 01/27/23 History lisinopril 5 mg tablet 5 mg PO DAILY 01/27/23 01/27/23 History methotrexate sodium 2.5 mg tablet 20 mg PO WE 01/27/23 01/27/23 History mupirocin 2 % topical ointment 1 applic topical BID PRN .. 01/27/23 01/27/23 History pantoprazole 40 mg tablet,delayed 40 mg PO DAILY 01/27/23 01/27/23 History release paroxetine HCl 20 mg tablet 20 mg PO QPM 01/27/23 01/27/23 History paroxetine HCl 40 mg tablet 40 mg PO QAM 01/27/23 01/27/23 History simvastatin 20 mg tablet 20 mg PO DAILY 01/27/23 01/27/23 History azithromycin 500 mg tablet 500 mg PO DAILY 5 days #5 tabs 01/29/23 Rx Hospital Stay Data Consultations 01/27/23 17:37 ED Decision to Admit Stat 01/28/23 07:58 Consult Pulmonology Routine Diagnostic Imagining Performed 01/27/23 17:40 CT chest diagnostic wo con Routine Pending Results Patient Have Any Pending Studies at Discharge: Yes (PJP test, hypersensitivity panel, Sjogren's test) Discharge Instructions Given to Patient (Per Discharging Provider) You were admitted to the hospital for evaluation of trouble breathing. Your imaging studies including chest xray and CT showed evidence of interstitial lung disease (inflammatory changes to the lungs), as well as evidence of atypical pneumonia. You were given antibiotics for pneumonia, and with time and treatment, your symptoms improved and you did not need oxygen therapy. You have a few tests pending to look for sources of your interstitial lung disease. I have attached the phone number for Dr. Goodman's office to this paperwork. I recommend you have follow up with Pulmonology to review these labs and see if any other tests are recommended. We also recommend that you have a sleep study outside of the hospital in the near future. Lastly, we recommend you have a follow up CT scan of your chest in 6 weeks to see if the lungs are looking better. You should discuss this with your family doctor and Dr. Goodman. I have sent the prescriptions to [facility] in [place]. Total Time Total Time Spent Total Time Spent (In Minutes): 40 minutes Coding Level of Care Code 47873 INP/OBS DISCH >30 MIN Diagnoses Acute respiratory failure with hypoxia J96.01 ILD (interstitial lung disease) J84.9 CAP (community acquired pneumonia) J18.9 Rheumatoid arthritis M06.9 Diabetes E11.9 Hyperlipidemia E78.5 Chest pain R07.9 Hypothyroid E03.9
--- NOTE | 2023-01-29 19:53 | Electrocardiogram Report ---
Test Reason : Blood Pressure : / mmHG Vent. Rate : 097 BPM Atrial Rate : 097 BPM P-R Int : 140 ms QRS Dur : 080 ms QT Int : 370 ms P-R-T Axes : 031 007 025 degrees QTc Int : 469 ms Normal sinus rhythm Normal ECG When compared with ECG of 17-FEB-2015 11:21, Nonspecific T wave abnormality now evident in Anterior leads Confirmed by Anthony Kothari ([id number]) on 01/29/2023 7:52:46 PM Referred By: Aquilino Carrasco Confirmed By:Anthony Kothari
== END 2023-01-29 14:05 | disposition home or self-care (01) | DRG 193 ==
LOC: ED 15:39 → 2N 18:09 → SUATTDRO 18:09 → 2N 19:45